=== PATIENT | female | born 1990 | race Caucasian/White ===

== ENCOUNTER 2016-08-15 02:57 | Emergency (ER) | payer OTHER ==
[~2016-08-15] VITALS: Ht 167.6 cm; Wt 60.0 kg
[2016-08-15 03:00] VITALS: BP 122/64; PULSE 95; RESP 20; TEMP 98.3; O2SAT 98
--- NOTE | 2016-08-15 03:54 | PD ---
HPI Chief Complaint: Psychiatric Symptoms Time Seen by Provider: 03:39 Travel History International Travel<30 days: No Contact w/Intl Traveler<30days: No Traveled to known affect area: No History of Present Illness HPI 26-year-old female complains of anxiety depression and self mutilating. Patient is about 10 1/2 weeks . Patient states that she has long standing history of bipolar disorder, anxiety and depression. Patient was on medication until recently. Patient found out that she was and stopped taking the medications. Patient states that she started having exacerbation of the symptoms and started cutting herself. Patient states that she cut herself on the left ankle and left wrist. Patient states that she smoked marijuana recently also. Patient denies any alcohol abuse. Patient went to [facility] in [facility] and was medically cleared to go with [place] for psychiatric evaluation and treatment. Patient denies any leg. Patient denies any chest pain or shortness of breath. Patient denies abdominal pain. Patient denies any vaginal discharge or bleeding. Patient had abdominal ultrasound done at [facility] in [facility]. PFSH Social History Tobacco Use: No Allergies-Medications (Allergen,Severity, Reaction): Coded Allergies: Codeine (Verified Allergy, Mild, Nausea/Vomiting, 08/15/16) Erythromycin (Verified Allergy, Mild, Nausea/Vomiting, 08/15/16) Hydrocodone (Verified Allergy, Mild, Nausea/Vomiting, 08/15/16) Lortab (Verified Allergy, Mild, Nausea/Vomiting, 08/15/16) Morphine (Verified Allergy, Mild, Nausea/Vomiting, 08/15/16) Penicillin (Verified Allergy, Mild, Rash, 08/15/16) Reglan (Verified Allergy, Mild, 08/15/16) Reported Meds & Prescriptions Reported Meds & Active Scripts Active Vistaril (Hydroxyzine Pamoate) 50 Mg Cap 50 Mg PO BID Cymbalta DR (Duloxetine HCl) 30 Mg Capdr 30 Mg PO DAILY Review of Systems General / Constitutional: No: Fever Eyes: No: Visual changes HENT: No: Headaches Cardiovascular: No: Chest Pain or Discomfort Respiratory: No: Shortness of Breath Gastrointestinal: No: Abdominal Pain Genitourinary: No: Dysuria Musculoskeletal: No: Pain Skin: No Rash Neurologic: No: Weakness Psychiatric: No: Depression Endocrine: No: Polydipsia Hematologic/Lymphatic: No: Easy Bruising Physical Exam Narrative GENERAL: Well-nourished, well-developed patient. SKIN: Focused skin assessment warm/dry. HEAD: Normocephalic. EYES: No scleral icterus. No injection or drainage. NECK: Supple, trachea midline. No JVD or lymphadenopathy. CARDIOVASCULAR: Regular rate and rhythm without murmurs, gallops, or rubs. RESPIRATORY: Breath sounds equal bilaterally. No accessory muscle use. GASTROINTESTINAL: Abdomen soft, non-tender, nondistended. MUSCULOSKELETAL: No cyanosis, or edema. BACK: Nontender without obvious deformity. No CVA tenderness. Data Data Last Documented VS Vital Signs Date Time Temp Pulse Resp B/P Pulse Ox O2 Delivery O2 Flow Rate FiO2 08/15/16 08:02 86 17 108/65 98 Room Air 08/15/16 03:00 98.3 Orders Diphenhydramine (Benadryl) (08/15/16 04:00) Promethazine (Phenergan) (08/15/16 04:00) MDM Medical Decision Making Medical Screen Exam Complete: Yes Emergency Medical Condition: Yes Differential Diagnosis Differential diagnosis including anxiety, depression, bipolar disorder, suicidal. Narrative Course 26-year-old female history of bipolar disorder, anxiety, depression, started cutting herself yesterday. Patient was seen at [facility] in [place] and was medically cleared to go to [place] for psychiatric evaluation and disposition. Scripts Hydroxyzine Pamoate (Vistaril)50 Mg Cap50 Mg PO BID #30 CAP Ref 0 Prov:Janak Estevez MD 08/15/16 Duloxetine (Cymbalflorin REDDY)30 Mg Capdr30 Mg PO DAILY #30 CAP Ref 0 Prov:Janak Estevez MD 08/15/16 Maury Bajwa MD Aug 15, 2016 03:54
[2016-08-15] MEDS ORDERED: diphenhydrAMINE HCL 25 MG CAP PO ONE (04:00)
[2016-08-15] MEDS ORDERED: PROMETHAZINE HCL 25 MG TAB PO ONE (04:00)
[2016-08-15 08:02] VITALS: BP 108/65; PULSE 86; RESP 17; O2SAT 98
[2016-08-15] MEDS ORDERED: CYMB30CA PO (09:20)
[2016-08-15] MEDS ORDERED: VIST50CA PO (09:20)
--- NOTE | 2016-08-15 10:59 | PD ---
History of Present Illness Chief Complaint: Psychiatric Symptoms Time Seen by Provider: 08:45 Travel History International Travel<30 Days: No Contact w/Intl Traveler<30days: No Known affected area: No Legal Status Legal Status: Bunch Act Bunch Act Signed By: History of Present Illness: This is a 26-year-old female who was Bunch acted for suicidality and a history of cutting herself. Upon interview, the patient is 10 weeks . She is continuing to use marijuana and what she says is a "self-medicating" fashion since she is no longer on her antidepressant or mood stabilizing medicines. She has 4 children at home and she lives with her and her boyfriend. Apparently she is having sexual relations with both men and she does not know which is the father of her unborn child. She reports that she is stressed out as a result of these relationships and that is why she made suicidal comments. She is blaming the sexual relationships with her and her boyfriend on what she considers to be bipolar noah. This physician does not see any significant symptoms of noah at this time. 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 This physician spoke with the patient at length as her potential lethality to self and her children could be great. She requested to go back on her antidepressant, Cymbalta and she requested something non- addicting for her anxiety. This physician provided extensive informed consent regarding the Cymbalta and as well as Vistaril and . The patient is competent to make medical decisions and she is denying suicidal ideation, plan or intent at this time. She is denying homicidal ideation, plan or intent. Her cognition is intact. She is verbally kacy for safety. She exhibits no psychotic symptoms. PFSH Past Medical History Bipolar Disorder: Yes Anxiety: Yes Depression: Yes Migraines: Yes Tetanus Vaccination: Unknown Influenza Vaccination: No ?: Ectopic : Yes Tubal Ligation: Yes Past Surgical History Cholecystectomy: Yes Tonsillectomy: Yes Psychiatric History Psychiatric History Hx Psychiatric Treatment: Patient has been treated with Cymbalta, 60 mg at least, in the past. History of Inpatient Treatment: No Guns or firearms in home: No Social History Hx Alcohol Use: No Hx Tobacco Use: No Hx Substance Use: Yes (MARIJUANA) Substance Use Type: Marijuana Hx of Substance Use Treatment: No Allergies-Medications (Allergen,Severity, Reaction): Coded Allergies: Codeine (Verified Allergy, Mild, Nausea/Vomiting, 08/15/16) Erythromycin (Verified Allergy, Mild, Nausea/Vomiting, 08/15/16) Hydrocodone (Verified Allergy, Mild, Nausea/Vomiting, 08/15/16) Lortab (Verified Allergy, Mild, Nausea/Vomiting, 08/15/16) Morphine (Verified Allergy, Mild, Nausea/Vomiting, 08/15/16) Penicillin (Verified Allergy, Mild, Rash, 08/15/16) Reglan (Verified Allergy, Mild, 08/15/16) Reported Meds & Prescriptions Reported Meds & Active Scripts Active Vistaril (Hydroxyzine Pamoate) 50 Mg Cap 50 Mg PO BID Cymbalta DR (Duloxetine HCl) 30 Mg Capdr 30 Mg PO DAILY Review of Systems Except as stated in HPI: all other systems reviewed are Neg Exam Alert: Yes Douglas: Person, Place, Date, Situation Mood: Calm Affect: Appropriate Speech: Clear, Logical Eye Contact: Normal Memory Intact: Immediate, Recent, Remote Insight/Judgement Adequate MDM Medical Decision Making Medical Record Reviewed: Yes Assessment/Plan Patient's Bunch act is being lifted and she is being sent home. She was started back on her Cymbalta 30 mg per day and she was given Vistaril 50 mg twice a day when necessary anxiety, both per her request. She is verbally kacy for safety and does not wish to be admitted. In this physician's opinion she does not currently meet Bunch act criteria or inpatient psychiatric hospitalization criteria. Although she is at risk for future acting out behavior, this cannot be predicted and the patient is competent at this time. Orders Diphenhydramine (Benadryl) (08/15/16 04:00) Promethazine (Phenergan) (08/15/16 04:00) Results Vital Signs Date Time Temp Pulse Resp B/P Pulse Ox O2 Delivery O2 Flow Rate FiO2 08/15/16 08:02 86 17 108/65 98 Room Air 08/15/16 03:00 98.3 95 20 122/64 98 Diagnosis Primary Impression: Adjustment disorder with mixed disturbance of emotions and conduct Departure Forms: Tests/Procedures Patient Instructions: General Instructions Prescriptions Hydroxyzine Pamoate (Vistaril)50 Mg Cap50 Mg PO BID #30 CAP Ref 0 Prov:Janak Estevez MD 08/15/[address] (Armandombalta )30 Mg Capdr30 Mg PO DAILY #30 CAP Ref 0 Prov:Janak Estevez MD 08/15/16 Disposition: 01 DISCHARGE HOME Condition: Stable Janak Estevez MD Aug 15, 2016 10:59
== END 2016-08-15 10:07 | disposition home or self-care (01) ==
LOC: NEPC 02:57
DX: O99.341 Other mental disorders complicating pregnancy, first trimester (principal); F43.25 Adjustment disorder with mixed disturbance of emotions and conduct; Z3A.10 10 weeks gestation of pregnancy
CPT/HCPCS: 99284; Q0169

== ENCOUNTER 2017-01-19 13:32 | Emergency (ER) | payer MEDICAID, OTHER ==
[~2017-01-19 13:32] MED LIST: CYMB30CA PO; VIST50CA PO
[2017-01-19] MEDS ORDERED: LACTATED RINGER'S 1000 ML INJ 1,000 ML IV SCH (15:01)
--- NOTE | 2017-01-19 15:12 | PD ---
HPI Chief Complaint Contractions Date Seen: Jan 19, 2017 Time Seen: 15:00 Travel History International Travel<30 Days: No Contact w/Intl Traveler<30Days: No Known Affected Area: No History of Present Illness HPI Patient is 26-year-old white female G P3 L4 at 33 weeks previous who is unregistered to our Hospital see Dr. Galeas for care wants to deliver here. She presents complaining of contractions. She states she began kacy somewhat since 30 weeks but these got stronger and more regular. She denies bleeding or leakage of fluid. Baby is active. On the monitor she is kacy every 5-6 minutes and the heart tracing is reactive Weeks Gestation: 33 Para: 3 : 5 History Obstetric History Obstetric History Patient's had 2 vaginal deliveries and 1 for twins at 35 weeks, her water broke with that the gestation and that she was sectioned because of the malpresentation of twins. She had one vaginal delivery was at 33 weeks With this the patient has been followed and at 30 weeks was hospitalized for contractions and did get magnesium sulfate IV for 1 day. She was given a round of steroids with that admission she's had her 2 doses already and she has been getting Leslie IM since 17 wks Past Surgical History Narrative Surgical 1 Social History Alcohol Use: No Tobacco Use: No Substance Abuse: No Allergies-Medications (Allergen,Severity, Reaction): Coded Allergies: acetaminophen (Unverified Allergy, Mild, Nausea/Vomiting, 10/25/16) codeine (Unverified Allergy, Mild, Nausea/Vomiting, 10/25/16) erythromycin base (Unverified Allergy, Mild, Nausea/Vomiting, 10/25/16) hydrocodone (Unverified Allergy, Mild, Nausea/Vomiting, 10/25/16) metoclopramide (Unverified Allergy, Mild, 10/25/16) morphine (Unverified Allergy, Mild, Nausea/Vomiting, 10/25/16) penicillin G (Unverified Allergy, Mild, Rash, 10/25/16) Home Meds Active Scripts Hydroxyzine Pamoate (Vistaril) 50 Mg Cap, 50 MG PO BID for Anxiety, #30 CAP 0 Refills Prov:Janak Estevez MD 08/15/16 Duloxetine (Cymbalta ) 30 Mg Capdr, 30 MG PO DAILY, #30 CAP 0 Refills Prov:Janak Estevez MD 08/15/16 Review of Systems General / Constitutional: No: Fever, Weight Gain, Chills, Other Eyes: No: Diploplia, Blurred Vision, Visual changes, Pain, Photophobia HENT: No: Headaches, Vertigo, Lightheadedness Cardiovascular: No: Irregular Rhythm, Chest Pain or Discomfort, Palpitations, Tachycardia, Syncope, Varicosities, Edema, Cyanosis Respiratory: No: Cough, Short of Breath, Other Gastrointestinal: Abdominal Pain, No: Nausea, Vomiting, Diarrhea Genitourinary: No: Decreased Urinary Output, Oliguria Musculoskeletal: No: Limited ROM, Weakness, Cramping, Edema, Pain Skin: No Rash, No Itching, No Dryness, No Lumps, No Change in Pigmentation, No Change in Nails, No Alopecia, No Lesions Neurologic: No: Weakness, Dizziness, Syncope, Focal Abnormalities, Coordination Problem, Headache, Slurred Speech, Seizures Psychiatric: No: Depression, Suicidal Ideations, Homicidal Ideation Endocrine: No: Heat Intolerance, Cold Intolerance, Polydipsia, Polyuria, Other Physical Exam Narrative GENERAL: Well-nourished, well-developed patient. SKIN: Warm and dry. HEAD: Normocephalic and atraumatic. EYES: No scleral icterus. No injection or drainage. ENT: No nasal drainage noted. Mucous membranes pink. Airway patent. NECK: Supple, trachea midline. No JVD. CARDIOVASCULAR: Regular rate and rhythm without murmurs, gallops, or rubs. RESPIRATORY: Breath sounds equal bilaterally. No accessory muscle use. BREASTS: Bilateral exam showed no masses , no retractions, no nipple discharge. ABDOMEN/GI: Abdomen soft, non-tender, bowel sounds present, no rebound, no guarding Gravid to [-33] weeks size Fundal Height: [-33] GENITOURINARY: External Genitalia: intact and normal in appearance BUS glands: [-] Cervix: [-post] Dilatation: [-0] Effacement: [-0] Station: [-3] Membranes: [intact ] Uterine Contractions: [q 5-6min-] FHT's: Category: [1-] Baseline: [-133] Reactive: [yes-] Variability: [mod-] Decels: [0-] EXTREMITIES: No cyanosis or edema. BACK: Nontender without obvious deformity. No CVA tenderness. NEUROLOGICAL: Awake and alert. Motor and sensory grossly within normal limits. Five out of 5 muscle strength in all muscle groups. Normal speech. Data Data Orders Orders Vital Signs (Adult) .ON ADMISSION (01/19/17 15:) ^ Labor Status (01/19/17 15:) Urinalysis - C+S If Indicated (01/19/17:) Diet Liquid (01/19/17 Dinner) Fibronectin (01/19/17:) Lactated Ringer's 1000 Ml Inj (Lr 1000 M (01/19/17 15:) Terbutaline Inj (Brethine Inj) (01/19/17:15) Fentanyl Inj (Fentanyl Inj) (01/19/17:) MDM Interpretation(s) Patient is 26-year-old white female L4 review now 33 weeks is unregistered our system but presents here for evaluation of contractions. She is kacy every 5-6 minutes, heart rate tracing is reactive, cervix is closed thick and high. Urinalysis negative for dip stick ,FFN neg Plan Plan this patient to receive OB ED level tocolytics with IV fluid, subcutaneous terbutaline, and IV sedation. continue Wye as out pt. Bedrest , tylenol ,po hydration at home Diagnosis Diagnosis: Primary Impression: Threatened labor, antepartum Additional Impressions: Previous section 33 weeks gestation of Disposition: DISCHARGE HOME Condition: Stable Cristobal Morales II, MD Jan 19, 2017 15:12
[2017-01-19] MEDS ORDERED: TERBUTALINE INJ 1 MG/ML AMP SQ PRN (15:15)
[2017-01-19 15:39] LABS: BLOOD, URINE NEG (NEG); COMMENT (UR) CULT NOT INDICATED; CULTURE IF INDICATED CULT NOT INDICATED; GLUCOSE,URINE NEG (NEG); KETONE, URINE 40 mg/dL (NEG); MUCUS URINE FEW /lpf (OCC); NITRITE,URINE NEG (NEG); PH, URINE 6.5 (5.0-8.5); SQUAMOUS EPITHELIAL CELL URINE 1 /hpf (0-5); URINE COLOR YELLOW (YELLW/STRAW)
[2017-01-19] MEDS ORDERED: PROMETHAZINE INJ 25 MG/ML VIAL IM ONE (16:15)
[2017-01-19] MEDS ORDERED: ACETAMINOPHEN 325 MG TAB PO ONE (16:15)
[2017-01-19] MEDS ORDERED: ACETAMIN 325 MG/BUTALBITAL 50 MG/CAFFEINE 40 MG TAB PO ONE (17:15)
== END 2017-01-19 18:01 | disposition home or self-care (01) ==
LOC: HOBED 13:32
DX: O47.03 False labor before 37 completed weeks of gestation, third trimester (principal); Z3A.33 33 weeks gestation of pregnancy; Z79.899 Other long term (current) drug therapy; Z88.5 Allergy status to narcotic agent; Z88.0 Allergy status to penicillin; Z88.8 Allergy status to other drugs, medicaments and biological substances
CPT/HCPCS: 59025; 81001; 82731; 96372; 96374; 99284; J2550; J3010; J3105; J7120

== ENCOUNTER 2017-01-23 15:23 | Emergency (ER) | payer MEDICAID ==
[2017-01-23 15:41] VITALS: BP 127/79; PULSE 111
[2017-01-23 15:45] VITALS: RESP 18; TEMP 98.2
--- NOTE | 2017-01-23 15:58 | PD ---
HPI Chief Complaint contractions Date Seen: Jan 23, 2017 Time Seen: 15:45 (Sabas Zavaleta MD R2) Travel History International Travel<30 Days: No Contact w/Intl Traveler<30Days: No Known Affected Area: No (Sabas Zavaleta MD R2) History of Present Illness HPI Patient is a 26-year-old at 33 weeks and 5 days who presents with contractions. She reports that she started having a headache this morning, and treated with Tylenol. She then noted some irregular contractions about every 6- 7 minutes at 1:30 PM this afternoon. She says her contractions have become increasingly frequent and are now about 3-4 minutes apart. She describes low abdominal and low back pain. She denies any vaginal bleeding, leakage of fluid. She reports movement. She also complains of some finger and toe swelling, some hot flashes with associated diaphoresis, some diplopia and eye pain, some dizziness and nausea. (Sabas Zavaleta MD R2) History Past Medical History Narrative Medical Depression Anxiety GERD Iron deficiency anemia (Sabas Zavaleta MD R2) Obstetric History Obstetric History Patient is a . Her first was premature at 33 weeks and 2 days, vaginal delivery of a 5 pound infant. Her second was an ectopic, which required left salpingectomy. Her third was born at 37 and 6 weeks, vaginal delivery of a 7 pound . Her last delivered at 35 weeks and 2 days, twins via . Her water broke with that the gestation and that she was sectioned because of the malpresentation of twins. She had one vaginal delivery was at 33 weeks With this the patient has been followed and at 30 weeks was hospitalized for contractions and did get magnesium sulfate IV for 1 day. She was given a round of steroids with that admission she's had her 2 doses already and she has been getting Leslie IM since 17 wks, but is no longer. (Sabas Zavaleta MD R2) Past Surgical History Narrative Surgical Cholecystectomy Left salpingectomy Tonsillectomy LEEP (Sabas Zavaleta MD R2) Family History Narrative Family History Mother and sister have rheumatoid arthritis and some other autoimmune diseases that the patient can't remember. (Sabas Zavaleta MD R2) Social History Narrative Social History Patient lives at home with her boyfriend and 4 children. Alcohol Use: No Tobacco Use: No Substance Abuse: No (Sabas Zavaleta MD R2) Allergies-Medications (Allergen,Severity, Reaction): Coded Allergies: acetaminophen (Unverified Allergy, Mild, Nausea/Vomiting, 10/25/16) codeine (Unverified Allergy, Mild, Nausea/Vomiting, 10/25/16) erythromycin base (Unverified Allergy, Mild, Nausea/Vomiting, 10/25/16) hydrocodone (Unverified Allergy, Mild, Nausea/Vomiting, 10/25/16) metoclopramide (Unverified Allergy, Mild, 10/25/16) morphine (Unverified Allergy, Mild, Nausea/Vomiting, 10/25/16) penicillin G (Unverified Allergy, Mild, Rash, 10/25/16) Home Meds Active Scripts Hydroxyzine Pamoate (Vistaril) 50 Mg Cap, 50 MG PO BID for Anxiety, #30 CAP 0 Refills Prov:Janak Estevez MD 08/15/[address] (Cymbalta DR) 30 Mg Capdr, 30 MG PO DAILY, #30 CAP 0 Refills Prov:Janak Estevez MD 08/15/16 Narrative Medication Patient reports taking Cymbalta, omeprazole, iron pill, folic acid, Tylenol, Flexeril, Vistaril, Nasacort, Phenergan (Sabas Zavaleta MD R2) Review of Systems General / Constitutional: No: Fever, Chills Eyes: Diploplia, Pain HENT: Headaches Cardiovascular: No: Chest Pain or Discomfort Respiratory: No: Short of Breath Gastrointestinal: Nausea, Abdominal Pain (low abdominal pain), No: Vomiting Genitourinary: No: Dysuria (swelling of fingers and toes) Musculoskeletal: Cramping (lower abdomen, low back), Edema, Pain (lower abdomen , low back) (Sabas Zavaleta MD R2) Physical Exam bp 127/79, P 111 Narrative GENERAL: Well-nourished, well-developed patient. SKIN: Warm and dry. HEAD: Normocephalic and atraumatic. EYES: No scleral icterus. No injection or drainage. ENT: No nasal drainage noted. Mucous membranes pink. Airway patent. NECK: Supple, trachea midline. No JVD. CARDIOVASCULAR: Tachycardic rate and regular rhythm without murmurs, gallops, or rubs. RESPIRATORY: Breath sounds equal bilaterally. No accessory muscle use. ABDOMEN/GI: Abdomen soft, non-tender, bowel sounds present, no rebound, no guarding Gravid to 33 weeks size GENITOURINARY: External Genitalia: intact and normal in appearance Cervix: posterior/mid Dilatation: Closed Effacement: Thick Station: Long Membranes: intact Uterine Contractions: a few Every 5 minutes on the monitor FHT's: Category: Cat I Baseline: 140 Reactive: reactive Variability: Moderate Decels: none EXTREMITIES: No cyanosis or edema. BACK: Nontender without obvious deformity. No CVA tenderness. NEUROLOGICAL: Awake and alert. Motor and sensory grossly within normal limits. Five out of 5 muscle strength in all muscle groups. Normal speech. (Sabas Zavaleta MD R2) Data Data Vital Signs Reviewed: Yes (Sabas Zavaleta MD R2) MDM Plan Patient is a 26-year-old at 33 weeks and 5 days who presents with contractions. 1. contractions -LR IV bolus, then LR at 1 25 L/h -Fentanyl 50 g IV -Monitor vital signs -Monitor heart rate -Monitor labor status/tocometry -Urine dip shows ketones and trace protein, otherwise unremarkable with no signs of infection -Encourage by mouth hydration 2. Nausea -Phenergan 25 mg IM s/d/w Dr. Morales. Addendum: Patient had received most of the liter of LR IV, a dose of fentanyl, and she still seems to be kacy. If she continues to contract, will consider giving terbutaline. If she still continues to contract after that, we' ll consider admitting to observation for magnesium sulfate IV. (Sabas Zavaleta MD R2) Sabas Zavaleta MD R2 Jan 23, 2017 15:57 Cristobal Morales II, MD Jan 23, 2017 17:58
[2017-01-23] MEDS ORDERED: PROMETHAZINE INJ 25 MG/ML VIAL IM ONE (16:15)
[2017-01-23] MEDS ORDERED: LACTATED RINGER'S 1000 ML INJ 1,000 ML IV ONE (16:15)
[2017-01-23 16:56] LABS: BLOOD, URINE NEG (NEG); COMMENT (UR) CULT NOT INDICATED; CULTURE IF INDICATED CULT NOT INDICATED; GLUCOSE,URINE NEG (NEG); KETONE, URINE 80 mg/dL (NEG); MUCUS URINE FEW /lpf (OCC); NITRITE,URINE NEG (NEG); PH, URINE 6.5 (5.0-8.5); SQUAMOUS EPITHELIAL CELL URINE 2 /hpf (0-5); URINE COLOR YELLOW (YELLW/STRAW)
[2017-01-23] MEDS ORDERED: LACTATED RINGER'S 1000 ML INJ 1,000 ML IV SCH ×2 (17:00→18:00)
[2017-01-23] MEDS ORDERED: CALCIUM GLUCONATE 10% 1 GM/10 ML VIAL IV PUSH PRN (17:15)
[2017-01-23] MEDS ORDERED: SODIUM CHLORIDE 0.9% FLUSH 10 ML FLUSH IV FLUSH PRN (17:15)
[2017-01-23] MEDS ORDERED: TERBUTALINE INJ 1 MG/ML AMP ONE (17:22)
[2017-01-23] MEDS ORDERED: TERBUTALINE INJ 1 MG/ML AMP SQ PRN (17:30)
[2017-01-23 17:45] VITALS: RESP 18
[2017-01-23] MEDS ORDERED: ACETAMIN 325 MG/BUTALBITAL 50 MG/CAFFEINE 40 MG TAB PO ONE (18:00)
[2017-01-23] MEDS ORDERED: NIFEdipine 10 MG CAP PO SCH ×2 (18:00)
[2017-01-23] MEDS ORDERED: SODIUM CHLORIDE 0.9% FLUSH 10 ML FLUSH IV FLUSH SCH (21:00)
== END 2017-01-23 19:21 | disposition home or self-care (01) ==
LOC: HOBED 15:23
DX: O26.893 Other specified pregnancy related conditions, third trimester (principal); N85.8 Other specified noninflammatory disorders of uterus; R51 Headache; R11.0 Nausea; O99.013 Anemia complicating pregnancy, third trimester; Z3A.33 33 weeks gestation of pregnancy
CPT/HCPCS: 59025; 80307; 81001; 96361; 96372; 96374; 99284; J2550; J3010; J7120; J3105

== ENCOUNTER 2017-01-30 20:48 | Emergency (ER) | payer MEDICAID ==
--- NOTE | 2017-01-30 21:37 | PD ---
HPI Chief Complaint Complaining of contractions abdominal pain Date Seen: Jan 30, 2017 Time Seen: 21:30 Travel History International Travel<30 Days: No Contact w/Intl Traveler<30Days: No Known Affected Area: No History of Present Illness HPI 26-year-old white female previous 34-1/2 weeks presents complaining of contractions. Denies bleeding or ruptured membranes. She sees in [place] that was to deliver here as a . She complains of abdominal pain today. Denies bleeding or ruptured membranes. Weeks Gestation: 34 Para: 4 : 5 History Obstetric History Obstetric History 3 vaginal deliveries and a and 1 set of twins Past Surgical History Narrative Surgical 1 Social History Alcohol Use: No Tobacco Use: Yes Substance Abuse: No Allergies-Medications (Allergen,Severity, Reaction): Coded Allergies: codeine (Unverified Allergy, Mild, Nausea/Vomiting, 10/25/16) erythromycin base (Unverified Allergy, Mild, Nausea/Vomiting, 10/25/16) hydrocodone (Unverified Allergy, Mild, Nausea/Vomiting, 10/25/16) metoclopramide (Unverified Allergy, Mild, 10/25/16) morphine (Unverified Allergy, Mild, Nausea/Vomiting, 10/25/16) penicillin G (Unverified Allergy, Mild, Rash, 10/25/16) Home Meds Active Scripts Hydroxyzine Pamoate (Vistaril) 50 Mg Cap, 50 MG PO BID for Anxiety, #30 CAP 0 Refills Prov:Janak Estevez MD 08/15/16 Duloxetine (Cymbalta ) 30 Mg Capdr, 30 MG PO DAILY, #30 CAP 0 Refills Prov:Janak Estevez MD 08/15/16 Review of Systems General / Constitutional: No: Fever, Weight Gain, Chills, Other Eyes: No: Diploplia, Blurred Vision, Visual changes, Pain, Photophobia HENT: No: Headaches, Vertigo, Lightheadedness Cardiovascular: No: Irregular Rhythm, Chest Pain or Discomfort, Palpitations, Tachycardia, Syncope, Varicosities, Edema, Cyanosis Respiratory: No: Cough, Short of Breath, Other Gastrointestinal: Abdominal Pain, No: Nausea, Vomiting, Diarrhea Genitourinary: No: Decreased Urinary Output, Oliguria Musculoskeletal: No: Limited ROM, Weakness, Cramping, Edema, Pain Skin: No Rash, No Itching, No Dryness, No Lumps, No Change in Pigmentation, No Change in Nails, No Alopecia, No Lesions Neurologic: No: Weakness, Dizziness, Syncope, Focal Abnormalities, Coordination Problem, Headache, Slurred Speech, Seizures Psychiatric: No: Depression, Suicidal Ideations, Homicidal Ideation Endocrine: No: Heat Intolerance, Cold Intolerance, Polydipsia, Polyuria, Other Physical Exam Narrative GENERAL: Well-nourished, well-developed patient. SKIN: Warm and dry. HEAD: Normocephalic and atraumatic. EYES: No scleral icterus. No injection or drainage. ENT: No nasal drainage noted. Mucous membranes pink. Airway patent. NECK: Supple, trachea midline. No JVD. CARDIOVASCULAR: Regular rate and rhythm without murmurs, gallops, or rubs. RESPIRATORY: Breath sounds equal bilaterally. No accessory muscle use. BREASTS: Bilateral exam showed no masses , no retractions, no nipple discharge. ABDOMEN/GI: Abdomen soft, non-tender, bowel sounds present, no rebound, no guarding Gravid to [34-] weeks size Fundal Height: [34-] GENITOURINARY: External Genitalia: intact and normal in appearance BUS glands: [-] Cervix: [closed-] Dilatation: [closed-] Effacement: [50-] Station: [-3] Membranes: [intact ] Uterine Contractions: [-+ irritability] FHT's: Category: [1-] Baseline: [-133] Reactive: [yes-] Variability: [-mod] Decels: [-0] EXTREMITIES: No cyanosis or edema. BACK: Nontender without obvious deformity. No CVA tenderness. NEUROLOGICAL: Awake and alert. Motor and sensory grossly within normal limits. Five out of 5 muscle strength in all muscle groups. Normal speech. Data Data Orders Orders Meperidine Inj (Demerol Inj) (01/30/17 21:30) Promethazine Inj (Phenergan Inj) (01/30/17 21:45) MDM Interpretation(s) Patient is a 26-year-old white female 34 weeks previous and wants to with this baby. She presents clinically contractions. She denies bleeding or ruptured membranes. Baby is active. heart rate tracing is reactive. She is not having regular contractions but is having positive uterine irritability. Patient's been appear many times for abdominal pain. She goes to Dr. Padgett in [place] wants to deliver here Plan Plan to give the patient showed Demerol Phenergan IM for pain relief and sedation, DC home to bedrest, and use oral liquids for hydration, Tylenol PM or just regular Tylenol when necessary and a heating pad or hot bath for symptom relief Diagnosis Diagnosis: Primary Impression: Abdominal pain during in third trimester Additional Impressions: Uterine irritability Previous section Disposition: 01 DISCHARGE HOME Condition: Stable Cristobal Morales II, MD Jan 30, 2017 21:37
[2017-01-30] MEDS ORDERED: MEPERIDINE HCL 50 MG/ML VIAL IM ONE (21:45)
[2017-01-30] MEDS ORDERED: PROMETHAZINE INJ 25 MG/ML VIAL IM ONE (21:45)
== END 2017-01-30 22:44 | disposition home or self-care (01) ==
LOC: HOBED 20:48
DX: O26.893 Other specified pregnancy related conditions, third trimester (principal); R10.9 Unspecified abdominal pain; O99.333 Smoking (tobacco) complicating pregnancy, third trimester; Z79.899 Other long term (current) drug therapy; Z88.5 Allergy status to narcotic agent; Z88.0 Allergy status to penicillin; Z88.8 Allergy status to other drugs, medicaments and biological substances
CPT/HCPCS: 59025; 96372; 99284; J2175

== ENCOUNTER 2017-02-11 17:36 | Emergency (ER) | payer MEDICAID ==
[2017-02-11 17:59] VITALS: BP 121/83; PULSE 97
--- NOTE | 2017-02-11 18:09 | PD ---
HPI Chief Complaint Swelling Date Seen: Feb 11, 2017 Time Seen: 18:06 Travel History International Travel<30 Days: No Contact w/Intl Traveler<30Days: No Known Affected Area: No History of Present Illness HPI 26-year-old 5 para 3 ectopic 1 with an EDC of March 08 who comes today for evaluation of swollen ankles. She has not had problems with hypertension during this but does have a history of preeclampsia with a twin . She denies any headache, visual change or abdominal pains. Para: 5 : 3 History Past Medical History Narrative Medical History of anxiety depression Obstetric History Obstetric History 2 vaginal deliveries, 1 for twins She receives care Dr. Coreas. She is hoping for a . Past Surgical History Narrative Surgical and left salpingectomy for ectopic Family History Family History: Negative Social History Alcohol Use: No Tobacco Use: No Substance Abuse: No Allergies-Medications (Allergen,Severity, Reaction): Coded Allergies: codeine (Unverified Allergy, Mild, Nausea/Vomiting, 10/25/16) erythromycin base (Unverified Allergy, Mild, Nausea/Vomiting, 10/25/16) hydrocodone (Unverified Allergy, Mild, Nausea/Vomiting, 10/25/16) metoclopramide (Unverified Allergy, Mild, 10/25/16) morphine (Unverified Allergy, Mild, Nausea/Vomiting, 10/25/16) penicillin G (Unverified Allergy, Mild, Rash, 10/25/16) Home Meds Active Scripts Hydroxyzine Pamoate (Vistaril) 50 Mg Cap, 50 MG PO BID for Anxiety, #30 CAP 0 Refills Prov:Janak Estevez MD 08/15/16 Duloxetine (Cymbalta ) 30 Mg Capdr, 30 MG PO DAILY, #30 CAP 0 Refills Prov:Janak Estevez MD 08/15/16 Review of Systems Except as stated in HPI: all other systems reviewed are Neg Physical Exam Narrative GENERAL: Well-nourished, well-developed patient. SKIN: Warm and dry. HEAD: Normocephalic and atraumatic. EYES: No scleral icterus. No injection or drainage. ENT: No nasal drainage noted. Mucous membranes pink. Airway patent. NECK: Supple, trachea midline. No JVD. CARDIOVASCULAR: Regular rate and rhythm without murmurs, gallops, or rubs. RESPIRATORY: Breath sounds equal bilaterally. No accessory muscle use. BREASTS: Bilateral exam showed no masses , no retractions, no nipple discharge. ABDOMEN/GI: Abdomen soft, non-tender, bowel sounds present, no rebound, no guarding Gravid to [-] weeks size Fundal Height: [-] GENITOURINARY: External Genitalia: intact and normal in appearance BUS glands: [-] Cervix: [-] Dilatation: [-] Effacement: [-] Station: [-] Presentation: [-] Membranes: [intact or ruptured] Uterine Contractions: [-] FHT's: Category: [-1] Baseline: [-] Reactive: [y-] Variability: [-] Decels: [-] EXTREMITIES: No cyanosis , trace edema. BACK: Nontender without obvious deformity. No CVA tenderness. NEUROLOGICAL: Awake and alert. Motor and sensory grossly within normal limits. Five out of 5 muscle strength in all muscle groups. Normal speech. Data Data Vital Signs Reviewed: Yes Orders Orders Vital Signs (Adult) .ON ADMISSION (02/11/17 17:59) ^ Labor Status (02/11/17 17:59) Urinalysis - C+S If Indicated (02/11/17 17:59) MDM Medical Record Reviewed: Yes Narrative Course / MDM 36 week multiparous female without evidence of preeclampsia, mild gestational swelling Plan: Discharge home with cautions and to follow up for visit on Monday. Diagnosis Diagnosis: Primary Impression: 36 weeks gestation of Disposition: 01 DISCHARGE HOME Condition: Good Landon Campuzano MD Feb 11, 2017 18:09
[2017-02-11 20:03] LABS: BACTERIA, URINE RARE /hpf; BLOOD, URINE NEG (NEG); COMMENT (UR) CULT NOT INDICATED; CULTURE IF INDICATED CULT NOT INDICATED; GLUCOSE,URINE NEG (NEG); KETONE, URINE NEG (NEG); MUCUS URINE FEW /lpf (OCC); NITRITE,URINE NEG (NEG); SQUAMOUS EPITHELIAL CELL URINE <1 /hpf (0-5); URINE COLOR LIGHT-YELLOW (YELLW/STRAW)
== END 2017-02-11 18:21 | disposition home or self-care (01) ==
LOC: HOBED 17:36
DX: O26.893 Other specified pregnancy related conditions, third trimester (principal); Z3A.36 36 weeks gestation of pregnancy
CPT/HCPCS: 59025; 81001

== ENCOUNTER → 2017-02-16 | Emergency (ER) | payer MEDICAID ==
[2017-02-16 12:15] VITALS: TEMP 98.8
--- NOTE | 2017-02-16 12:47 | PD ---
HPI Chief Complaint ctx Date Seen: Feb 16, 2017 Time Seen: 12:38 Travel History International Travel<30 Days: No Contact w/Intl Traveler<30Days: No Known Affected Area: No History of Present Illness HPI Pt is a 27y/o @ 37.1wks. She has PNC in [place]. She presented today for ctx. She states that they began several days ago and became intense last night and more regular this morning. She denies LOF or VB. +FM. PNC is complicated by a C/S last for twin gestation (in [place]). Pt desires and plans to deliver at [place]. Weeks Gestation: 37 Para: 4 : 5 History Past Medical History Narrative Medical IBS GERD anxiety/depression cervical dysplasia Obstetric History Obstetric History x2 at term ectopic CS for twins Past Surgical History Narrative Surgical CS x1 LSC ectopic LEEP lap choley tonsillectomy Family History Family History: Negative Social History Alcohol Use: No Tobacco Use: No Substance Abuse: No Allergies-Medications (Allergen,Severity, Reaction): Coded Allergies: codeine (Unverified Allergy, Mild, Nausea/Vomiting, 10/25/16) erythromycin base (Unverified Allergy, Mild, Nausea/Vomiting, 10/25/16) hydrocodone (Unverified Allergy, Mild, Nausea/Vomiting, 10/25/16) metoclopramide (Unverified Allergy, Mild, 10/25/16) morphine (Unverified Allergy, Mild, Nausea/Vomiting, 10/25/16) penicillin G (Unverified Allergy, Mild, Rash, 10/25/16) Home Meds Active Scripts Hydroxyzine Pamoate (Vistaril) 50 Mg Cap, 50 MG PO BID for Anxiety, #30 CAP 0 Refills Prov:Janak Estevez MD 08/15/16 Duloxetine (Cymbalta ) 30 Mg Capdr, 30 MG PO DAILY, #30 CAP 0 Refills Prov:Janak Estevez MD 08/15/16 Review of Systems Except as stated in HPI: all other systems reviewed are Neg Physical Exam Narrative General: well developed, well nourished, no acute distress HEENT: normocephalic atraumatic, extraocular movements intact, neck supple Abdomen: soft, gravid, nontender, nondistended Uterus: fundus term Extremities: full range of motion Skin: normal coloration, no rashes, no suspicious skin lesions noted Neurologic: cranial nerves 2-12 grossly intact, normal muscle tone, normal gait Psychiatric: normal mood and affect, appropriate FHTs: 120s, +accels, no decels, moderate variability, reactive [place]: irregular ctx Cvx: cl/20/-3 Data Data Vital Signs Reviewed: Yes Orders Orders Vital Signs (Adult) .ON ADMISSION (02/16/17 12:36) ^ Labor Status (02/16/17 12:36) ^ Non Stress Test (02/16/17 12:36) Ed Discharge Order (02/16/17 12:36) Group B Strep: Positive MDM Plan 27y/o @ 37.1wks with ctx. -- toco irregular, cvx closed -- FHTs cat 1 -- pt with a h/o CS for twins, op report requested as pt desires -- GBS+, will need abx intrapartum Dispo: stable for d/c home with precautions Diagnosis Diagnosis: Primary Impression: 37 weeks gestation of Additional Impressions: Uterine contractions during History of delivery History of LEEP (loop electrosurgical excision procedure) of cervix complicating Ritesh Hardwick MD Feb 16, 2017 12:47
== END | disposition home or self-care (01) ==
LOC: HOBED 11:50
DX: O62.9 Abnormality of forces of labor, unspecified (principal); O34.219 Maternal care for unspecified type scar from previous cesarean delivery; O99.343 Other mental disorders complicating pregnancy, third trimester; F41.8 Other specified anxiety disorders; Z98.890 Other specified postprocedural states; Z87.19 Personal history of other diseases of the digestive system; Z3A.37 37 weeks gestation of pregnancy
CPT/HCPCS: 59025